=== PATIENT | male | born 1950 | race Caucasian/White ===

== ENCOUNTER → 2021-10-17 | Outpatient (REF) | payer MEDICARE, OTHER ==
[2021-10-17 11:14] LABS: BASO # 0.1 10^3/uL (0.0-0.2); BASO % 0.8 % (0.0-1.0); EOS # 0.4 10^3/uL (0.0-0.5); EOS % 5.4 % (0.0-3.0); HEMATOCRIT 33.3 % (42.0-52.0); HEMOGLOBIN 10.7 g/dl (13.5-17.5); LYMPH # 1.5 10^3/uL (1.5-5.0); LYMPH % 19.5 % (24.0-44.0); MEAN CORPUSCULAR HEMOGLOBIN 30.7 pg (27.0-33.0); MEAN CORPUSCULAR HGB CONC 32.1 g/dl (32.0-36.5); MEAN CORPUSCULAR VOLUME 95.4 fl (80.0-96.0); MONO # 0.6 10^3/uL (0.0-0.8); MONO % 7.5 % (2.0-8.0); NEUTROPHILS # 5.2 10^3/uL (1.5-8.5); NEUTROPHILS % 66.3 % (36.0-66.0); PLATELET COUNT, AUTOMATED 345 10^3/uL (150-450); RED BLOOD COUNT 3.49 10^6/uL (4.30-6.10); WHITE BLOOD COUNT 7.9 10^3/uL (4.0-10.0)
[2021-10-17 11:43] LABS: ALBUMIN 3.3 GM/DL (3.2-5.2); ALT/SGPT 24 U/L (12-78); BILIRUBIN,TOTAL 0.3 MG/DL (0.2-1.0); BLOOD UREA NITROGEN 28 MG/DL (7-18); CALCIUM LEVEL 9.8 MG/DL (8.8-10.2); CARBON DIOXIDE LEVEL 25 MEQ/L (21-32); CHLORIDE LEVEL 113 MEQ/L (98-107); FERRITIN 58 NG/ML (26-388); GLUCOSE, FASTING 128 MG/DL (70-100); IRON (FE) 70 UG/DL (65-175); PERCENT SATURATION 19.4 % (19.7-50.0); POTASSIUM SERUM 5.5 MEQ/L (3.5-5.1); SODIUM LEVEL 142 MEQ/L (136-145); TOTAL IRON BINDING CAPACITY 360 UG/DL (250-450); TOTAL PROTEIN 6.2 GM/DL (6.4-8.2)
[2021-10-17 12:19] LABS: FOLATE > 24.0 NG/ML (>5.4); VITAMIN B12 LEVEL 214 PG/ML (247-911)
== END ==
LOC: M SFHCCLAY 09:13
PROVIDERS: ATTEND Family Medicine
DX: D64.9 Anemia, unspecified (principal); I10 Essential (primary) hypertension

== ENCOUNTER → 2021-10-17 | Outpatient (CLI) | payer MEDICARE, OTHER | LOC: M CLY 09:36 | PROVIDERS: ATTEND Family Medicine | DX: M25.561 Pain in right knee (principal) ==

== ENCOUNTER → 2022-10-17 | Outpatient (REF) | payer MEDICARE, OTHER ==
[2022-10-17 12:06] LABS: APPEARANCE, URINE CLEAR (CLEAR); BACTERIA, URINE AUTO NEGATIVE (NEGATIVE); BILIRUBIN, URINE AUTO NEGATIVE (NEGATIVE); BLOOD, URINE BLOOD NEGATIVE (NEGATIVE); COLOR, URINE YELLOW (YELLOW); GLUCOSE, URINE (UA) AUTO NEGATIVE (NEGATIVE); KETONE, URINE AUTO NEGATIVE (NEGATIVE); LEUKOCYTE ESTERASE, URINE AUTO NEGATIVE (NEGATIVE); MUCUS, URINE SMALL (NEGATIVE); NITRITE, URINE AUTO NEGATIVE (NEGATIVE); PROTEIN, URINE AUTO 2+ mg/dL (NEGATIVE); RBC, URINE AUTO 0 /HPF (0-3); SQUAMOUS EPITHELIAL CELL UR AU 0 /HPF (0-6); UROBILINOGEN, URINE AUTO 0.2 mg/dL (0.0-2.0); WBC, URINE AUTO 2 /HPF (0-3)
[2022-10-17 12:07] LABS: HEMATOCRIT 27.8 % (42.0-52.0); HEMOGLOBIN 8.5 g/dl (13.5-17.5); MEAN CORPUSCULAR HEMOGLOBIN 30.2 pg (27.0-33.0); MEAN CORPUSCULAR HGB CONC 30.6 g/dl (32.0-36.5); MEAN CORPUSCULAR VOLUME 98.9 fl (80.0-96.0); PLATELET COUNT, AUTOMATED 440 10^3/uL (150-450); RED BLOOD COUNT 2.81 10^6/uL (4.30-6.10); WHITE BLOOD COUNT 8.3 10^3/uL (4.0-10.0)
[2022-10-17 12:09] LABS: BILIRUBIN,TOTAL 0.3 MG/DL (0.3-1.2); CALCIUM LEVEL 8.9 MG/DL (8.3-10.6); CREATININE FOR GFR 1.32 MG/DL (0.70-1.30); GLOMERULAR FILTRATION RATE 56.6 (>42); PERCENT SATURATION 11.9 % (19.7-50.0); TOTAL PROTEIN 5.9 G/DL (5.7-8.2)
[2022-10-17 12:13] LABS: FERRITIN 79.1 NG/ML (10.5-307.3)
[2022-10-17 12:20] LABS: INR 0.96
[2022-10-17 12:21] LABS: PARTIAL THROMBOPLASTIN TIME 27.5 SECONDS (24.8-34.2)
== END ==
LOC: M SFHCCLAY 07:57
PROVIDERS: ATTEND Family Medicine
DX: Z01.818 Encounter for other preprocedural examination (principal); I10 Essential (primary) hypertension; D64.9 Anemia, unspecified; M16.12 Unilateral primary osteoarthritis, left hip

== ENCOUNTER → 2023-02-01 | Outpatient (REF) | payer MEDICARE, OTHER ==
[2023-02-01 12:23] LABS: HEMATOCRIT 31.2 % (42.0-52.0); MEAN CORPUSCULAR HEMOGLOBIN 30.1 pg (27.0-33.0); MEAN CORPUSCULAR HGB CONC 32.1 g/dl (32.0-36.5); PLATELET COUNT, AUTOMATED 349 10^3/uL (150-450); RED BLOOD COUNT 3.32 10^6/uL (4.30-6.10); WHITE BLOOD COUNT 8.5 10^3/uL (4.0-10.0)
[2023-02-01 12:48] LABS: PERCENT SATURATION 14.6 % (19.7-50.0)
== END ==
LOC: M SFHCCLAY 07:13
PROVIDERS: ATTEND Family Medicine
DX: D64.9 Anemia, unspecified (principal)

== ENCOUNTER → 2023-06-04 | Outpatient (REF) | payer MEDICARE, OTHER ==
[2023-06-04 11:54] LABS: BASO # 0.1 10^3/uL (0.0-0.2); EOS # 0.3 10^3/uL (0.0-0.5); EOS % 4.1 % (0.0-3.0); HEMATOCRIT 33.9 % (42.0-52.0); HEMOGLOBIN 10.8 g/dl (13.5-17.5); LYMPH # 1.6 10^3/uL (1.5-5.0); LYMPH % 20.8 % (24.0-44.0); MEAN CORPUSCULAR HGB CONC 31.9 g/dl (32.0-36.5); MEAN CORPUSCULAR VOLUME 97.4 fl (80.0-96.0); MONO # 0.5 10^3/uL (0.0-0.8); MONO % 6.5 % (2.0-8.0); NEUTROPHILS # 5.2 10^3/uL (1.5-8.5); NEUTROPHILS % 67.3 % (36.0-66.0); PLATELET COUNT, AUTOMATED 333 10^3/uL (150-450); RED BLOOD COUNT 3.48 10^6/uL (4.30-6.10); WHITE BLOOD COUNT 7.8 10^3/uL (4.0-10.0)
[2023-06-04 12:05] LABS: INR 0.98; PARTIAL THROMBOPLASTIN TIME 28.2 SECONDS (24.8-34.2); PROTHROMBIN TIME 12.7 SECONDS (12.5-14.5)
[2023-06-04 12:15] LABS: ALBUMIN 3.7 G/DL (3.2-5.2); BILIRUBIN,TOTAL 0.3 MG/DL (0.3-1.2); CALCIUM LEVEL 9.7 MG/DL (8.3-10.6); CREATININE FOR GFR 1.52 MG/DL (0.70-1.30); PERCENT SATURATION 26.1 % (19.7-50.0); TOTAL PROTEIN 6.5 G/DL (5.7-8.2)
[2023-06-04 12:16] LABS: FERRITIN 53.5 NG/ML (10.5-307.3)
[2023-06-04 14:01] LABS: HEMOGLOBIN A1c 5.6 % (4.0-6.0)
== END ==
LOC: M LABDRAWC 11:19
PROVIDERS: ATTEND Orthopaedic Surgery Adult Reconstructive Orthopaedic Surgery
DX: Z01.818 Encounter for other preprocedural examination (principal); E11.9 Type 2 diabetes mellitus without complications; M16.11 Unilateral primary osteoarthritis, right hip; M25.551 Pain in right hip

== ENCOUNTER → 2023-10-15 | Outpatient (REF) | payer MEDICARE, OTHER ==
[2023-10-15 11:42] LABS: HEMATOCRIT 35.6 % (42.0-52.0); HEMOGLOBIN 11.3 g/dl (13.5-17.5); MEAN CORPUSCULAR HEMOGLOBIN 31.3 pg (27.0-33.0); MEAN CORPUSCULAR HGB CONC 31.7 g/dl (32.0-36.5); MEAN CORPUSCULAR VOLUME 98.6 fl (80.0-96.0); PLATELET COUNT, AUTOMATED 316 10^3/uL (150-450); RED BLOOD COUNT 3.61 10^6/uL (4.30-6.10); WHITE BLOOD COUNT 7.8 10^3/uL (4.0-10.0)
[2023-10-15 12:15] LABS: PERCENT SATURATION 16.3 % (19.7-50.0)
[2023-10-15 12:16] LABS: ALBUMIN 3.5 G/DL (3.2-5.2); BILIRUBIN,TOTAL 0.3 MG/DL (0.3-1.2); CALCIUM LEVEL 9.4 MG/DL (8.3-10.6); CREATININE FOR GFR 1.72 MG/DL (0.70-1.30); GLOMERULAR FILTRATION RATE 41.6 (>42); POTASSIUM SERUM 5.7 MMOL/L (3.5-5.1); TOTAL PROTEIN 6.3 G/DL (5.7-8.2)
[2023-10-15 12:17] LABS: FERRITIN 31.1 NG/ML (10.5-307.3)
== END ==
LOC: M SFHCCLAY 08:23
PROVIDERS: ATTEND Family Medicine
DX: D64.9 Anemia, unspecified (principal); I10 Essential (primary) hypertension

== ENCOUNTER → 2024-10-16 | Outpatient (REF) | payer MEDICARE, OTHER ==
[2024-10-16 12:36] LABS: PLATELET COUNT, AUTOMATED 347 10^3/uL (150-450)
[2024-10-16 12:37] LABS: IRON (FE) 59.0 UG/DL (65-175)
[2024-10-16 12:38] LABS: ALT/SGPT 25.0 U/L (7.0-40); AST/SGOT 25.0 U/L (<34); CALCIUM LEVEL 10.2 MG/DL (8.3-10.6); CARBON DIOXIDE LEVEL 26.0 MMOL/L (20-31); CHLORIDE LEVEL 110.0 MMOL/L (98-107); CHOLESTEROL LEVEL 109.0 MG/DL (<200); CHOLESTEROL RISK RATIO 2.55 (<5); CREATININE FOR GFR 2.17 MG/DL (0.70-1.30); GLOMERULAR FILTRATION RATE 31.0 (>42); LDL CHOLESTEROL 53.1 MG/DL (<100); NON-HDL-C 66.3 MG/DL; PERCENT SATURATION 18.6 % (19.7-50.0); POTASSIUM SERUM 5.2 MMOL/L (3.5-5.1); SODIUM LEVEL 147.0 MMOL/L (136-145); TRIGLYCERIDES LEVEL 66.0 MG/DL (<150)
== END ==
LOC: M SFHCCLAY 07:36
PROVIDERS: ATTEND Family Medicine
DX: D64.9 Anemia, unspecified (principal); I10 Essential (primary) hypertension

== ENCOUNTER → 2024-11-25 | Outpatient (REF) | payer MEDICARE, OTHER ==
[2024-11-25 18:44] LABS: BASO # 0.1 10^3/uL (0.0-0.2); BASO % 0.7 % (0.0-1.0); EOS # 0.3 10^3/uL (0.0-0.5); EOS % 3.3 % (0.0-3.0); LYMPH # 1.9 10^3/uL (1.5-5.0); LYMPH % 19.7 % (24.0-44.0); MONO # 0.5 10^3/uL (0.0-0.8); MONO % 5.6 % (2.0-8.0); NEUTROPHILS # 6.7 10^3/uL (1.5-8.5); NEUTROPHILS % 70.2 % (36.0-66.0); PLATELET COUNT, AUTOMATED 468 10^3/uL (150-450)
[2024-11-25 19:06] LABS: ALT/SGPT 27.0 U/L (7.0-40); AST/SGOT 17.0 U/L (<34); CALCIUM LEVEL 9.3 MG/DL (8.3-10.6); CARBON DIOXIDE LEVEL 23.0 MMOL/L (20-31); CHLORIDE LEVEL 109.0 MMOL/L (98-107); CREATININE FOR GFR 1.88 MG/DL (0.70-1.30); GLOMERULAR FILTRATION RATE 36.8 (>42); POTASSIUM SERUM 5.4 MMOL/L (3.5-5.1); SODIUM LEVEL 140.0 MMOL/L (136-145)
== END ==
LOC: M SFHCCLAY 13:40
PROVIDERS: ATTEND Family Medicine
DX: N18.32 Chronic kidney disease, stage 3b (principal); M11.20 Other chondrocalcinosis, unspecified site; M25.561 Pain in right knee